=== PATIENT | female | born 1990 | race Caucasian/White ===

== ENCOUNTER 2018-12-21 17:55 | Inpatient (IN) ==
[2018-12-21] MEDS ORDERED: LACTATED RINGER'S 1,000 ML IV PRN (18:06)
[2018-12-21] MEDS ORDERED: OXYTOCIN 30 UNITS/500 ML BAG IV PRN ×2 (18:06→20:53)
[2018-12-21 18:22] LABS: Hematocrit (blood only) 34.7 % (37-47); Hemoglobin 11.9 g/dL (12.0-16.0); Mean Platelet Volume 11.5 fL (7.4-10.4); Platelet Count 152 K/uL (130-400); RDW Coefficient of Variation 13.1 % (11.5-14.5); RDW Standard Deviation 44.7 fL (36.4-46.3); Red Blood Count 3.69 M/uL (4.2-5.4); White Blood Count 14.11 K/uL (4.8-10.8)
[2018-12-21 18:25] LABS: Mean Corpuscular Hgb Conc 34.3 g/dL (32-36)
[2018-12-21] MEDS ORDERED: BUPIVACAINE 0.25% 30 ML VIAL ONE (18:27)
[2018-12-21] MEDS ORDERED: ePHEDrine sulfate 50 MG/ML AMP ONE (18:27)
[2018-12-21] MEDS ORDERED: fentaNYL 2MCG/ML ROPIV 1.25MG/ML 100 ML BAG EPI ONE (18:28)
[2018-12-21] MEDS ORDERED: fentaNYL citrate 100 MCG/2 ML VIAL ONE (18:28)
--- NOTE | 2018-12-21 18:35 | Anesthesiology Consultation ---
Date of Service December 21, 2018 Assessment & Plan (1) Encounter for pre-operative examination: Chart Review Chart Review: Acceptable Risk for Labor Epidural History Height/Weight Height: 5 ft 1 in Weight: 62.142 kg Allergies Allergy/AdvReac Type Severity Reaction Status Date / Time No Known Allergies Allergy Verified 12/21/18 18:28 Medications Home Medications Medication Instructions Recorded Confirmed Last Taken vit-iron fum-folic ac 1 tab PO DAILY #0 tab 05/18/13 12/21/18 12/21/18 [ Vitamin] Active Medications Generic Name Dose Route Start Last Admin Trade Name Freq PRN Reason Stop Dose Admin Lactated Ringer's 1,000 mls @ 125 mls/hr 12/21/18 18:06 12/21/18 18:16 Lr IV 12/23/18 18:05 999 mls/hr .Q8H PRN Administration L&D Protocol Protocol Past Medical History Medical History No significant past medical history Past Surgical History has had epidural in past Social History Smoking Status: Never smoker Hx Alcohol Use: No Hx Substance Use: No Physical Exam Vital Signs Last Vital Signs Temp 36.7 C 12/21/18 18:08 Pulse 92 H 12/21/18 18:08 Resp 18 12/21/18 18:08 BP 123/90 12/21/18 18:08 Testing Laboratory Results 12/21/18 18:16
[2018-12-21] MEDS ORDERED: fentaNYL 2MCG/ML ROPIV 1.25MG/ML 100 ML BAG EPI PRN (19:01)
[2018-12-21] MEDS ORDERED: NALOXONE HCL 0.4 MG/1 ML VIAL/CARP IV PRN (19:01)
[2018-12-21] MEDS ORDERED: NALOXONE HCL 1 MG in SODIUM CHLORIDE 0.9% 1000ML 1,000 ML IV PRN (19:01)
[2018-12-21] MEDS ORDERED: ePHEDrine sulfate 50 MG/ML AMP IV PRN (19:01)
[2018-12-21] MEDS ORDERED: ONDANSETRON INJ 2 MG/ML 2 ML VIAL IV PRN (19:01)
[2018-12-21] MEDS ORDERED: METHYLERGONOVINE MALEATE 0.2 MG/ML AMP ONE (20:46)
[2018-12-21] MEDS ORDERED: ACETAMINOPHEN 325 MG TAB PO PRN (20:53)
[2018-12-21] MEDS ORDERED: miSOPROStol 200 MCG TAB PR ONE (20:53)
[2018-12-21] MEDS ORDERED: DIPHTHERIA/TETANUS/PERTUSSIS 0.5 ML SYR/VIAL IM ONE (20:53)
[2018-12-21] MEDS ORDERED: BENZOCAINE 20% AER SPR 82.5 GM CAN EXT PRN (20:53)
[2018-12-21] MEDS ORDERED: METHYLERGONOVINE MALEATE 0.2 MG/ML AMP IM ONE (20:53)
[2018-12-21] MEDS ORDERED: BISACODYL 10 MG SUPP PR PRN (20:53)
[2018-12-21] MEDS ORDERED: SUPERCREAM 0.870% 15 GM JAR EXT PRN (20:53)
[2018-12-21] MEDS ORDERED: HYDROCORTISONE ACETATE 25 MG SUPP PR PRN (20:53)
[2018-12-21] MEDS ORDERED: miSOPROStol 200 MCG TAB ONE (20:54)
[2018-12-21] MEDS: IBUPROFEN 600 MG TAB PO PRN (23:41)
--- NOTE | 2018-12-22 03:00 | History and Physical Report ---
DATE OF ADMISSION: 12/21/2018 HISTORY OF PRESENT ILLNESS: The patient is a 27-year-old G2, P1, due date 12/29/2018, who presents to labor and delivery at 38 weeks and 6 days in labor. On exam, she was found to be 5 cm with confirmed spontaneous rupture of membranes. Decision was made to admit the patient. The patient's history has been unremarkable. PAST MEDICAL HISTORY: History of anxiety. PAST SURGICAL HISTORY: History of adenoids removed at age 14. SOCIAL HISTORY: The patient denies tobacco, drug, or alcohol use. FAMILY HISTORY: Noncontributory. PHYSICAL EXAMINATION: GENERAL: Well-developed, well-nourished white female in labor discomfort. HEART: S1, S2, regular rhythm and rate. LUNGS: Clear to auscultation bilaterally. ABDOMEN: Gravid. PELVIC: By nurse on admission is 5 cm with grossly ruptured membranes, fluid is clear. EXTREMITIES: No cyanosis, clubbing, edema. ASSESSMENT AND PLAN: A 27-year-old G2, P1 at 38 and 6 weeks. Term premature rupture of membranes. The patient is admitted and we anticipate vaginal delivery.
[2018-12-22] MEDS: IBUPROFEN 600 MG TAB PO PRN ×3 (05:56→19:38)
[2018-12-22 06:58] LABS: Hematocrit (blood only) 37.4 % (37-47); Hemoglobin 13.1 g/dL (12.0-16.0); Mean Corpuscular Volume 94.4 fL (80-100); Mean Platelet Volume 11.5 fL (7.4-10.4); Platelet Count 136 K/uL (130-400); RDW Standard Deviation 44.3 fL (36.4-46.3); Red Blood Count 3.96 M/uL (4.2-5.4); White Blood Count 16.22 K/uL (4.8-10.8)
[2018-12-22] MEDS: DOCUSATE SODIUM 100 MG CAP PO SCH ×2 (09:12→20:00)
[2018-12-22] MEDS: PRENATAL VITAMIN 1 TAB PO SCH (09:12)
--- NOTE | 2018-12-22 09:24 | Anesthesia Procedure Note ---
Date of Service December 22, 2018 Anesthesia Post Epidural Note Vital Signs Vital Signs: Temp Pulse Resp BP Pulse Ox 36.9 C 81 18 123/80 97 12/22/18 03:40 12/22/18 03:40 12/22/18 03:40 12/22/18 03:40 12/22/18 00:50 Pain Intensity Bilateral Abdomen: Pain Intensity: 6 Notes Mental Status: alert / awake / arousable Nausea / Vomiting: adequately controlled Pain: adequately controlled Airway Patency, RR, SpO2: stable & adequate BP & HR: stable & adequate Hydration State: stable & adequate Neuraxial Anesthesia: was administered and sensory block is resolving Anesthetic Complications: no major complications apparent and Pt Satisfied with anesthetic care Epidural: Removed without complications and With tip intact
--- NOTE | 2018-12-22 09:25 | Obstetrical Progress Note ---
Date of Service December 22, 2018 Subjective doing well Physical Exam Constitutional: WD/WN, vitals as above comfortable abdomen soft non- tender fundus firm no edema Neg Lula's tent discharge in AM Results & Data Vital Signs (Past 12 Hours) Vital Signs Temp Pulse Pulse Resp BP BP Pulse Ox 12/22/18 03:40 36.9 C 81 18 123/80 12/22/18 00:50 37 C 98 H 18 120/67 97 12/21/18 23:30 38.1 C H 115 H 18 126/59 L 12/21/18 23:20 111 H 128/57 L 12/21/18 23:05 113 H 124/60 12/21/18 22:50 107 H 18 133/62 12/21/18 22:35 100 H 124/70 12/21/18 22:15 16 12/21/18 22:05 111 H 120/75 12/21/18 21:50 112 H 18 127/74 12/21/18 21:44 105 H 129/76 12/21/18 21:35 18 Laboratory Results Laboratory Results - last 48 hr 12/21/18 12/22/18 18:16 06:28 WBC 14.11 H 16.22 H RBC 3.69 L 3.96 L Hgb 11.9 L 13.1 Hct 34.7 L 37.4 MCV 94.0 94.4 MCH 32.2 33.1 MCHC 34.3 35.0 RDW Std Deviation 44.7 44.3 RDW Coeff of Oel 13.1 13.0 Plt Count 152 136 MPV 11.5 H 11.5 H
[2018-12-22] MEDS ORDERED: BISACODYL 5 MG TABEC PO SCH (20:00)
[2018-12-23] MEDS: IBUPROFEN 600 MG TAB PO PRN (04:11)
[2018-12-23 06:37] LABS: Hematocrit (blood only) 36.7 % (37-47); Hemoglobin 12.5 g/dL (12.0-16.0)
[2018-12-23] MEDS: PRENATAL VITAMIN 1 TAB PO SCH (07:47)
[2018-12-23] MEDS: DOCUSATE SODIUM 100 MG CAP PO SCH (07:47)
--- NOTE | 2018-12-23 10:43 | Obstetrical Progress Note ---
Date of Service December 23, 2018 Assessment & Plan (1) normal course: PPD #2 pt doing well No complaints disch home with instructions Subjective Ambulation: ambulating normally Voiding: no voiding problems Passing Gas:: Yes Diet Tolerance:: regular diet Lochia:: Small Feeding Type:: breast feeding Review of Systems All systems reviewed & are unremarkable except as noted in HPI & below Physical Exam Constitutional WD/WN, vitals as above well developed and well nourished Eyes PERRL, conjunctivae normal, anicteric sclerae Neck trachea midline, no thyromegaly Respiratory normal respiratory effort, lungs clear to auscultation Auscultation: no crackles, no rales and no wheezes Cardiovascular RRR, no murmur, no edema Gastrointestinal (Abdomen) normal bowel sounds, soft, nontender, no hepatosplenomegaly Uterus is below umbilicus Musculoskeletal no cyanosis or clubbing, extremities motor strength 5/5 Skin no rashes, warm and dry Neurologic patellar DTR's 2+ bilat, sensation intact Psychiatric A+Ox3, euthymic affect Genitourinary normal external appearance Results & Data Vital Signs (Past 12 Hours) Vital Signs Temp Pulse Resp BP Pulse Ox 12/23/18 07:40 36.4 C L 85 18 112/76 98 12/23/18 00:30 36.9 C 89 18 108/70
--- NOTE | 2019-01-26 09:07 | Delivery Summary ---
DATE OF OPERATION: 12/21/2018 The patient delivered a live infant. Weight and Apgars in the pediatric record. evaluation was unremarkable. Laceration was repaired. Rectal exam post repair was unremarkable. Details of delivery can be seen in the nursing note as well. The patient and baby did well and are in recovery in stable condition. ESTIMATED BLOOD LOSS: 600 mL I attest to the content of the Intraoperative Record and any orders documented therein. Any exception s are noted below.
== END 2018-12-23 11:50 | disposition home or self-care (01) | DRG 807 ==
LOC: OPB 17:55 → 4S1 18:00 → 4S2 23:55